=== PATIENT | female | born 1940 | race Caucasian/White ===

== ENCOUNTER 2025-03-10 13:15 | Inpatient (IN) | payer MEDICARE, BC ==
[2025-03-10] MEDS ORDERED: Codeine/guaiFENesin 10-100 MG/5 ML Syrup 5 ML Cup PO PRN (14:00)
[2025-03-10] MEDS ORDERED: Albuterol 0.083% 2.5 MG/3 ML Neb Soln NEB PRN (14:04)
[2025-03-10] MEDS: Fluticasone NASAL Spray 16 GM Bottle NASBOTH SCH (22:05)
[2025-03-11] MEDS: Cholecalciferol (Vitamin D3) 25 MCG Tab PO SCH (09:23)
[2025-03-11] MEDS: Cyanocobalamin (Vitamin B12) 1,000 MCG Tab PO SCH (09:23)
[2025-03-11] MEDS: Ondansetron 4 MG Tab.DIS PO PRN (15:57)
[2025-03-13] MEDS: Fluorometholone 0.1% Ophth Susp 5 ML Bottle EYELF SCH (09:54)
[2025-03-16] MEDS: Magnesium Hydroxide 400 MG/5 ML Susp 30 ML Cup PO ONE (09:45)
== END 2025-03-17 14:45 | disposition home health service (06) | DRG 948 ==
LOC: JP.MS 13:15
PROVIDERS: ADMIT Hospitalist; ATTEND Internal Medicine
DX: R53.81 Other malaise (principal); S32.000A Wedge compression fracture of unspecified lumbar vertebra, initial encounter for closed fracture; C79.31 Secondary malignant neoplasm of brain; Z66 Do not resuscitate; D64.9 Anemia, unspecified; I48.0 Paroxysmal atrial fibrillation; Z88.0 Allergy status to penicillin; Z88.8 Allergy status to other drugs, medicaments and biological substances; Z79.01 Long term (current) use of anticoagulants; Z85.118 Personal history of other malignant neoplasm of bronchus and lung; Z79.899 Other long term (current) drug therapy
CPT/HCPCS: 36415; 84443; 97116-GP; 97161-GP; 97165-GO; 97530-GP; 97535-GO; 99305; 99316; A9270-GY; Q0162

== ENCOUNTER 2025-08-13 17:38 | Emergency (ER) | payer MEDICARE, BC ==
[2025-08-13 18:06] LABS: BASOPHILS ABSOLUTE AUTO 0.01 K/uL (0.00-0.10); BASOPHILS PERCENT AUTO 0.1 % (0.1-1.3); EOSINOPHILS ABSOLUTE AUTO 0.13 K/uL (0.00-0.40); EOSINOPHILS PERCENT AUTO 1.6 % (0.0-5.4); IMMATURE GRAN ABSOLUTE AUTO 0.01 K/uL (0.00-0.23); IMMATURE GRAN PERCENT AUTO 0.1 % (0.0-0.7); LYMPHOCYTES ABSOLUTE AUTO 1.51 K/uL (0.8-3.3); LYMPHOCYTES PERCENT AUTO 18.5 % (11.4-47.7); MONOCYTES ABSOLUTE AUTO 0.68 K/uL (0.20-0.90); MONOCYTES PERCENT AUTO 8.3 % (3.3-12.6); NEUTROPHILS ABSOLUTE AUTO 5.84 K/uL (1.0-7.6); NEUTROPHILS PERCENT AUTO 71.4 % (40.0-78.1); PLATELET COUNT,PLT 126 K/uL (130-375); RED BLOOD CELL COUNT 3.82 M/uL (3.77-5.24); WHITE BLOOD CELL COUNT,WBC 8.2 K/uL (3.2-11.0)
[2025-08-13 18:29] LABS: A/G RATIO 0.9 (1.2-2.2); ALANINE AMINOTRANSFERASE,ALT 84 U/L (12-78); ASPARTATE AMNIOTRANSFERASE,AST 48 U/L (15-37); BILIRUBIN TOTAL 0.6 mg/dL (0.2-1.0); BLOOD UREA NITROGEN,BUN 21 mg/dL (7-18); CARBON DIOXIDE,CO2 22 mmol/L (21-32); CHLORIDE,CL 109 mmol/L (100-108); CREATININE 0.7 mg/dL (0.6-1.0); ESTIMATED GFR 86 mL/min (>60); GLUCOSE RANDOM 111 mg/dL (74-106); POTASSIUM,K 4.2 mmol/L (3.6-5.2); PROTEIN TOTAL,TP 6.8 g/dL (6.4-8.2); SODIUM,NA 141 mmol/L (140-148); TROPONIN I HIGH SENSITIVITY 40.7 pg/mL (<=60.3)
[2025-08-13] MEDS: Diltiazem 25 MG/5 ML SDV IVPUSH ONE (19:00)
== END 2025-08-13 20:30 | disposition home or self-care (01) ==
LOC: JP.ED 17:38
DX: J44.9 Chronic obstructive pulmonary disease, unspecified (principal); I48.91 Unspecified atrial fibrillation; I10 Essential (primary) hypertension; E03.9 Hypothyroidism, unspecified; Z88.8 Allergy status to other drugs, medicaments and biological substances; Z79.899 Other long term (current) drug therapy; Z79.01 Long term (current) use of anticoagulants; Z79.890 Hormone replacement therapy; Z95.0 Presence of cardiac pacemaker
CPT/HCPCS: 36415; 71046; 71046-26; 80053; 83605; 84484; 85025; 87428-QW; 93005; 93010; 94640; 96374; 99284; 99285-25; A9270-GY; J1163

== ENCOUNTER 2025-08-18 12:13 | Inpatient (IN) | payer MEDICARE, BC ==
[2025-08-18] MEDS ORDERED: Sodium Chloride 0.9% 10 ML Syringe FLUSH PRN (12:47)
[2025-08-18 13:09] LABS: BASOPHILS ABSOLUTE AUTO 0.04 K/uL (0.00-0.10); BASOPHILS PERCENT AUTO 0.6 % (0.1-1.3); EOSINOPHILS ABSOLUTE AUTO 0.12 K/uL (0.00-0.40); EOSINOPHILS PERCENT AUTO 1.9 % (0.0-5.4); IMMATURE GRAN PERCENT AUTO 0.3 % (0.0-0.7); LYMPHOCYTES ABSOLUTE AUTO 0.91 K/uL (0.8-3.3); LYMPHOCYTES PERCENT AUTO 14.5 % (11.4-47.7); MONOCYTES ABSOLUTE AUTO 0.42 K/uL (0.20-0.90); MONOCYTES PERCENT AUTO 6.7 % (3.3-12.6); NEUTROPHILS ABSOLUTE AUTO 4.76 K/uL (1.0-7.6); NEUTROPHILS PERCENT AUTO 76.0 % (40.0-78.1); PLATELET COUNT,PLT 122 K/uL (130-375); RED BLOOD CELL COUNT 3.62 M/uL (3.77-5.24); WHITE BLOOD CELL COUNT,WBC 6.3 K/uL (3.2-11.0)
[2025-08-18 13:11] LABS: IMMATURE GRAN ABSOLUTE AUTO 0.02 K/uL (0.00-0.23)
[2025-08-18 13:28] LABS: A/G RATIO 0.9 (1.2-2.2); ALANINE AMINOTRANSFERASE,ALT 68 U/L (12-78); ASPARTATE AMNIOTRANSFERASE,AST 37 U/L (15-37); BILIRUBIN TOTAL 0.8 mg/dL (0.2-1.0); BLOOD UREA NITROGEN,BUN 26 mg/dL (7-18); CARBON DIOXIDE,CO2 22 mmol/L (21-32); CHLORIDE,CL 108 mmol/L (100-108); CREATININE 0.7 mg/dL (0.6-1.0); ESTIMATED GFR 86 mL/min (>60); GLUCOSE RANDOM 135 mg/dL (74-106); POTASSIUM,K 4.2 mmol/L (3.6-5.2); PROTEIN TOTAL,TP 6.7 g/dL (6.4-8.2); SODIUM,NA 140 mmol/L (140-148); TROPONIN I HIGH SENSITIVITY 23.4 pg/mL (<=60.3)
[2025-08-18 13:42] LABS: CORONAVIRUS COVID-19 NAA NEGATIVE (NEGATIVE); INFLUENZA A NAA NEGATIVE (NEGATIVE); INFLUENZA B NAA NEGATIVE (NEGATIVE); RESPIRATORY SYNCYTIAL VIR NAA NEGATIVE (NEGATIVE)
[2025-08-18] MEDS: Iopamidol 755 Mg/ML 100 ML Bottle IV SCH (13:51)
[2025-08-18] MEDS: Diltiazem 25 MG/5 ML SDV IVPUSH ONE ×2 (14:45→16:47)
[2025-08-18] MEDS: Furosemide 40 MG/4 ML VIAL IVPUSH ONE (15:55)
[2025-08-18] MEDS: Diltiazem 100 MG in Sodium Chloride 0.9% 100 ML IV SCH (15:57)
[2025-08-18] MEDS ORDERED: Magnesium Hydroxide 400 MG/5 ML Susp 30 ML Cup PO PRN (17:15)
[2025-08-18] MEDS ORDERED: Sennosides/Docusate Sodium 50-8.6 MG Tab PO PRN (17:15)
[2025-08-18] MEDS ORDERED: Ondansetron 4 MG/2 ML SDV IV PRN (17:15)
[2025-08-19 06:00] LABS: PLATELET COUNT,PLT 115.0 K/uL (130-375); RED BLOOD CELL COUNT 3.63 M/uL (3.77-5.24); WHITE BLOOD CELL COUNT,WBC 5.2 K/uL (3.2-11.0)
[2025-08-19 06:16] LABS: BLOOD UREA NITROGEN,BUN 20.0 mg/dL (7-18); CARBON DIOXIDE,CO2 26.0 mmol/L (21-32); CHLORIDE,CL 108.0 mmol/L (100-108); CREATININE 0.6 mg/dL (0.6-1.0); EST CRCL DRUG DOSING (CG) 66.51 mL/min; ESTIMATED GFR 89.0 mL/min (>60); GLUCOSE RANDOM 95.0 mg/dL (74-106); POTASSIUM,K 3.9 mmol/L (3.6-5.2); SODIUM,NA 143.0 mmol/L (140-148)
[2025-08-19] MEDS: Furosemide 40 MG/4 ML VIAL IVPUSH ONE ×2 (06:25→14:15)
[2025-08-19] MEDS: Fluorometholone 0.1% Ophth Susp 5 ML Bottle EYELF SCH (09:27)
[2025-08-19] MEDS: Diltiazem 100 MG AdvVial ONE (09:38)
[2025-08-19] MEDS ORDERED: Non-Formulary Medication 1 Each (Lidocaine 5% [Lidoderm 5%] 1 PATCH) TRDERM SCH (09:45)
[2025-08-19] MEDS: Non-Formulary Medication 1 Each (Lidocaine 5% [Lidoderm 5%] 700 MG Patch) TRDERM SCH (11:51)
[2025-08-19] MEDS: Ondansetron 4 MG Tab.DIS PO PRN (19:15)
[2025-08-20 05:52] LABS: PLATELET COUNT,PLT 128.0 K/uL (130-375); RED BLOOD CELL COUNT 3.52 M/uL (3.77-5.24); WHITE BLOOD CELL COUNT,WBC 7.7 K/uL (3.2-11.0)
[2025-08-20 06:15] LABS: BLOOD UREA NITROGEN,BUN 25.0 mg/dL (7-18); CARBON DIOXIDE,CO2 27.0 mmol/L (21-32); CHLORIDE,CL 109.0 mmol/L (100-108); CREATININE 0.6 mg/dL (0.6-1.0); EST CRCL DRUG DOSING (CG) 66.51 mL/min; ESTIMATED GFR 89.0 mL/min (>60); GLUCOSE RANDOM 88.0 mg/dL (74-106); POTASSIUM,K 4.0 mmol/L (3.6-5.2); SODIUM,NA 142.0 mmol/L (140-148)
[2025-08-21 05:49] LABS: BLOOD UREA NITROGEN,BUN 25.0 mg/dL (7-18); CARBON DIOXIDE,CO2 27.0 mmol/L (21-32); CHLORIDE,CL 109.0 mmol/L (100-108); CREATININE 0.5 mg/dL (0.6-1.0); EST CRCL DRUG DOSING (CG) 80.24 mL/min; ESTIMATED GFR 93.0 mL/min (>60); GLUCOSE RANDOM 88.0 mg/dL (74-106); POTASSIUM,K 3.8 mmol/L (3.6-5.2); SODIUM,NA 142.0 mmol/L (140-148)
[2025-08-21] MEDS: Diltiazem 120 MG Cap.CD PO SCH (11:36)
== END 2025-08-21 13:17 | disposition home or self-care (01) | DRG 291 ==
LOC: JP.ED 12:13 → JP.ICU 15:53
PROVIDERS: ADMIT Internal Medicine; ATTEND Internal Medicine
PROC: 0W993ZZ Drainage of Right Pleural Cavity, Percutaneous Approach (ICD-10-PCS; principal; 2025-08-18)
DX: R06.02 Shortness of breath (principal); R00.0 Tachycardia, unspecified; I10 Essential (primary) hypertension; I11.0 Hypertensive heart disease with heart failure; I50.33 Acute on chronic diastolic (congestive) heart failure; J96.01 Acute respiratory failure with hypoxia; Z79.890 Hormone replacement therapy; J90 Pleural effusion, not elsewhere classified; I48.91 Unspecified atrial fibrillation; Z66 Do not resuscitate; M54.9 Dorsalgia, unspecified; G89.29 Other chronic pain; H91.90 Unspecified hearing loss, unspecified ear; H54.7 Unspecified visual loss; M81.0 Age-related osteoporosis without current pathological fracture; F41.9 Anxiety disorder, unspecified; E03.9 Hypothyroidism, unspecified; D64.9 Anemia, unspecified; Z96.649 Presence of unspecified artificial hip joint; Z85.841 Personal history of malignant neoplasm of brain; Z88.8 Allergy status to other drugs, medicaments and biological substances; Z79.01 Long term (current) use of anticoagulants; Z95.0 Presence of cardiac pacemaker; Z79.899 Other long term (current) drug therapy; Z85.118 Personal history of other malignant neoplasm of bronchus and lung; Z98.49 Cataract extraction status, unspecified eye; Z98.890 Other specified postprocedural states
CPT/HCPCS: 36415; 71275 ×2; 80053; 83735; 84443; 84484; 85025; 86140; 87637; 93005; 93010; 96374; 99285 ×2; J1163; J7040; Q9967; 32555; 71045; 71045-26; 80048; 85027; 93306; 99223; 99232; 99238; A9270-GY; C1729; J1160; J1938; J2003; J3490; Q0162